=== PATIENT | male | born 1985 | race African-American/Black ===

== ENCOUNTER 2018-04-22 18:58 | Emergency (ER) | payer MEDICAID ==
[~2018-04-22] VITALS: Ht 180.3 cm; Wt 127.0 kg
[2018-04-22] MEDS ORDERED: SODIUM CHLORIDE 0.9% 1,000 ML IV ONE (20:05)
[2018-04-22] MEDS ORDERED: ONDANSETRON HCL 4MG/2ML INJ IV STA (20:05)
[2018-04-22] MEDS ORDERED: KETOROLAC 30MG/ML VIAL IV STA (20:05)
[2018-04-22] MEDS ORDERED: MORPHINE SULFATE 4 MG/ML CPJ (NOT FOR IM USE) IV STA (20:05)
[2018-04-22] MEDS ORDERED: BACITRACIN ZINC OINT UDPKT TOP ONE (20:15)
[2018-04-22] MEDS ORDERED: TETANUS, DIPHTHERIA, PERTUSSIS VAC/PF 0.5ML (>7YR OLD) IM ONE (20:15)
[2018-04-23 02:00] VITALS: BP 132/75
== END 2018-04-23 02:09 | disposition home or self-care (01) ==
LOC: ER 22:36
DX: S82.832A Other fracture of upper and lower end of left fibula, initial encounter for closed fracture (principal); S60.512A Abrasion of left hand, initial encounter; S20.412A Abrasion of left back wall of thorax, initial encounter; S00.03XA Contusion of scalp, initial encounter; I10 Essential (primary) hypertension; R56.9 Unspecified convulsions; F17.200 Nicotine dependence, unspecified, uncomplicated; V29.09XA Motorcycle driver injured in collision with other motor vehicles in nontraffic accident, initial encounter; Y93.89 Activity, other specified; Y92.89 Other specified places as the place of occurrence of the external cause; Y99.8 Other external cause status
CPT/HCPCS: 29515; 70450; 71045; 73590; 73610; 73630; 90471; 90715; 96374; 96375; 99285; J1885; J2270; J2405; J7030; X7700; Z7610